=== PATIENT | female | born 1935 | race Caucasian/White ===

== ENCOUNTER → 2020-08-14 11:33 | Outpatient (BNVA) | payer MEDICARE, OTHER, SELFPAY | PROVIDERS: PCP Family Medicine; Visit Provider Family Medicine | DX: E03.9 Hypothyroidism, unspecified (principal); Z13.6 Encounter for screening for cardiovascular disorders | CPT/HCPCS: 80053; 80061; 84443; 85025 ==

== ENCOUNTER → 2021-07-02 14:41 | Outpatient (BNVA) | payer MEDICARE, OTHER, SELFPAY | PROVIDERS: PCP Family Medicine; Visit Provider Family Medicine | DX: E03.9 Hypothyroidism, unspecified (principal); Z13.6 Encounter for screening for cardiovascular disorders | CPT/HCPCS: 80053; 84439; 84443; 85025 ==

== ENCOUNTER 2021-09-22 10:25 | Outpatient (CLI) | payer MEDICARE, OTHER, SELFPAY ==
--- NOTE | 2021-09-22 10:42 | XR_ITS ---
WS: [id number] BILATERAL RIBS, MULTIPLE VIEWS WITH PA CHEST HISTORY: fall with left rib pain COMPARISON: None. Lungs and mediastinum: Slight elevation of the RIGHT hemidiaphragm. No pneumothorax or pulmonary cont usion. No pleural effusion. Mitral annular calcification is likely. Moderate atherosclerosis and ecta dick thoracic aorta. Ribs: No rib fractures or bone destruction identified. XR/XR ribs BI mn 4V w CXR1V [id number] IMPRESSION: 1. No identifiable rib fractures are identified. The lower ribs are poorly vis ualized. 2. No pulmonary contusion or pneumothorax. 3. Moderate atherosclerosis and ectasia thoracic aorta.
--- NOTE | 2021-09-22 11:21 | CT_ITS ---
WS: [id number] CT HEAD NONCONTRAST HISTORY: Fall 09/21/2020 with Right forehead bruise TECHNIQUE: Contiguous axial imaging performed through the brain in 2.5 mm imaging. Bone and soft tiss ue windows. All CT scans at [facility] use at least one of these dose optimization techniques: automated exposure control; mA and/or kV adjustment per patient size (includes targeted exams where dose is matched to clinical indication); or iterative reconstruction. DLP: 1262.22 mGycm COMPARISON: None available. No acute intracranial hemorrhage, midline shift or mass effect. Mild atrophy is symmetric bilaterally. Moderate chronic microvascular ischemic type changes. No acute infarcts are identified. Ventricles: Mild ventriculomegaly on the basis of atrophy. No inferior displacement of the cerebellar tonsils. Paranasal sinuses: As visualized are clear. Mastoid air cells: Well pneumatized. Calvarium and scalp: No skull fracture. There is a very minimal soft tissue contusion over the RIGHT frontal bone. CT/CT head wo con* [id number] IMPRESSION: 1. No acute intracranial hemorrhage or edema. 2. Mild atrophy and moderate chronic microvascular ischemic changes. 3. Small RIGHT frontal scalp contusion.
== END 2021-09-22 10:26 | disposition home or self-care (01) ==
PROVIDERS: PCP Family Medicine; Visit Provider Family Medicine Adult Medicine
DX: R07.81 Pleurodynia (principal); W19.XXXA Unspecified fall, initial encounter; S00.03XA Contusion of scalp, initial encounter; G31.9 Degenerative disease of nervous system, unspecified; I70.0 Atherosclerosis of aorta; I77.810 Thoracic aortic ectasia
CPT/HCPCS: 70450; 71111

== ENCOUNTER → 2022-01-05 11:55 | Outpatient (BNVA) | payer MEDICARE, OTHER, SELFPAY | PROVIDERS: PCP Family Medicine; Visit Provider Family Medicine | DX: E03.9 Hypothyroidism, unspecified (principal); R41.3 Other amnesia | CPT/HCPCS: 82607; 84443 ==

== ENCOUNTER → 2022-03-10 10:26 | Outpatient (BNVA) | payer MEDICARE, OTHER, SELFPAY | PROVIDERS: PCP Family Medicine; Visit Provider Podiatrist Foot & Ankle Surgery | DX: L84 Corns and callosities (principal); L60.3 Nail dystrophy; I73.9 Peripheral vascular disease, unspecified | CPT/HCPCS: 11056; 11721 ==

== ENCOUNTER → 2022-05-19 12:58 | Outpatient (BNVA) | payer MEDICARE, OTHER, SELFPAY | PROVIDERS: PCP Family Medicine; Visit Provider Podiatrist Foot & Ankle Surgery | DX: I73.9 Peripheral vascular disease, unspecified (principal); L84 Corns and callosities; L60.3 Nail dystrophy | CPT/HCPCS: 11056; 11721 ==

== ENCOUNTER → 2022-08-17 12:58 | Outpatient (BNVA) | payer MEDICARE, OTHER, SELFPAY | PROVIDERS: PCP Family Medicine; Visit Provider Podiatrist Foot & Ankle Surgery | DX: I73.9 Peripheral vascular disease, unspecified (principal); L60.8 Other nail disorders; L84 Corns and callosities; L60.3 Nail dystrophy | CPT/HCPCS: 11056; 11721 ==

== ENCOUNTER 2022-09-18 12:29 | Emergency (ER) | payer MEDICARE, OTHER, SELFPAY ==
--- NOTE | 2022-09-18 12:41 | XRR_ITS ---
PROCEDURE INFORMATION: Exam: XR Lumbosacral Spine Exam date and time: 09/18/2022 12:48 PM Age: 87 years old Clinical indication: Injury or trauma; Fall; Blunt trauma (contusions or hematomas) TECHNIQUE: Imaging protocol: Radiologic exam of the lumbosacral spine. Views: 2 or 3 views. COMPARISON: No relevant prior studies available. FINDINGS: Bones/joints: Osteopenia. 90% compression fracture of L1 with vertebroplasty glue. There is an inferior endplate compression deformity approximately 40% of T11 of unknown age. 2 mm listhesis L4 anterior to L5. Severe facet joint hypertrophic changes L4/5 and L5/S1. Soft tissues: Unremarkable. Organs: Cholecystectomy clips. Vasculature: Vascular calcifications. Moderate aortic calcifications. XR/XR lumbar spine 2-3V* [id number] IMPRESSION: 1. Osteopenia, minimal listhesis and arthritis. 2. Compression fracture L1 with vertebroplasty glue. Compression fracture inferior endplate of T11 without vertebroplasty glue of unknown age.
--- NOTE | 2022-09-18 12:41 | ED_ITS ---
HPI - Fall General: Chief Complaint: Fall Stated Complaint: LOW BACK PAIN S/P FALL Time Seen by Provider: 09/18/22 12:35 Source: patient Mode of arrival: EMS History of Present Illness: 87-year-old female presents to the emergency room with complaints of a fall. She was up this morning in her assisted living apartment and turned stumbled and fell backwards. She complaining of pain in her back and in her left hip and knee she was able with assistance to get up and stand and support her weight with the use of canes which she normally uses for ambulation. She able to go to the restroom. On arrival here she complains of pain all over its little difficulty get her to specify the only able to focus at its more of her low back her left hip and knee. She did not strike her head not lose consciousness she did have a moderately prolonged downtime a couple of hours where she could not get to alert cord to pull in the apartment but did bang on her wall with a cane eventually someone heard her and came and offered assistance. MD complaint: fall Onset (ago): hour(s) Fall from: standing Fall witnessed: no Place fall occurred: senior care[facility] Loss of consciousness: None Prolonged down time: yes and hour(s) Context: tripped/slipped Location of injury: back Location of injury - extremities: Left: thigh (Hip) and knee Severity: moderate Associated symptoms-after fall: Reports difficulty walking; Denies abdominal pain, chest pain, confusion, headache(s), hematuria, lightheadedness, neck pain, numbness, short of breath, vertigo or weakness Review of Systems Const: Denies: fever(s), chills, body aches, change in appetite, fatigue or malaise ENMT: Denies: throat pain, ear or mastoid pain, nasal discharge or nasal congestion Card: Denies: chest pain, palpitations, irregular heart rhythm, edema or lightheadedness Resp: Denies: dyspnea, productive cough or non-productive cough GI: Denies: abdominal pain, nausea or vomiting : Denies: difficulty voiding, dysuria, urinary frequency, urinary urgency or hematuria Musc: Denies: neck pain Skin/Breast: Denies: rash or pruritus Neuro: Reports: difficulty walking; Denies: headache(s), vertigo or confusion PFS ED PFSH: Medical History Fall against object Head contusion Hypothyroid Osteoporosis Thyroid disease Surgical History H/O cataract extraction H/O total knee replacement right H/O: hysterectomy History of appendectomy History of cholecystectomy History of tonsillectomy Hx of total knee arthroplasty Family History Other Alzheimer disease Dementia Social History Smoking and tobacco status: former smoker Alcohol intake: current Alcohol intake frequency: holidays/special occasions only Alcohol type: beer and wine Lives independently: Yes Household members: none Physical Exam Const: GENERAL APPEARANCE: cooperative and comfortable ORIENTATION/CONSCIOUSNESS: Yes awake, Yes oriented to person, Yes oriented to place and Yes oriented to time HENMT: COMMON NORMALS: normocephalic, atraumatic and hearing grossly normal bilaterally HEAD & SCALP: normocephalic and atraumatic Lymph: LYMPHATIC: no lymphadenopathy noted and no lymphedema noted Resp: COMMON NORMALS: normal respiratory effort, No retractions, No use of accessory muscles and clear to auscultation bilaterally AUSCULTATION: clear to auscultation bilaterally Cardio: COMMON NORMALS: regular rate, regular rhythm and No murmurs present (Cardio) RATE: regular rate RHYTHM: regular rhythm GI: COMMON NORMALS: Soft to palpation and No hepatosplenomegaly present AUSCULTATION: Yes normoactive bowel sounds PALPATION: Yes Soft to palpation, No Tenderness to palpation present (GI), No Guarding due to palpation present (GI) and Yes No hepatosplenomegaly present Extremity: COMMON NORMALS: normal to inspection, capillary refill normal, no clubbing, cyanosis or edema, no calf tenderness and no pedal edema Neuro: SENSORIUM/ORIENTATION: Yes oriented to person, Yes oriented to place and Yes oriented to time Skin: COMMON NORMALS: no rashes or lesions noted GENERAL SKIN EXAM: no rashes or lesions noted Course Vital Signs: Vital signs: Vital Signs Pulse Rate 58 L 09/18/22 14:47 Respiratory Rate 16 09/18/22 14:47 Blood Pressure 173/86 09/18/22 14:47 Pulse Oximetry 94 01/07/23 14:47 Oxygen Delivery Me thod 09/18/22 14:47 MDM - Fall Medical Decision Making No acute fracture of the hip or knee on the left lumbar spine there is multiple compression fractures with a previous kyphoplasty nothing that appears new when she is not having any pain at a specific level at this time actually improved while she was here discharge her home return if she has further problems. Medical Records I reviewed the patient's medical records. Lab Data I reviewed the patient's lab results. 09/18/22 13:19 09/18/22 13:19 Radiology Impressions Lumbar Spine X-Ray 09/18/22 12:41 IMPRESSION: 1. Osteopenia, minimal listhesis and arthritis. 2. Compression fracture L1 with vertebroplasty glue. Compression fracture inferior endplate of T11 without vertebroplasty glue of unknown age. Hip/Pelvis X-Ray 09/18/22 12:59 IMPRESSION: Arthritis without fracture. Knee X-Ray 09/18/22 12:59 IMPRESSION: Arthritis and effusion. Laboratory Results WBC 5.7 10^3/uL (4.0-10.0) 09/18/22 13:19 RBC 3.99 10^6/uL (4.1-5.3) L 09/18/22 13:19 Hgb 11.7 g/dL (11.5-15.3) 09/18/22 13:19 Hct 37.4 % (37.0-47.0) 09/18/22 13:19 MCV 93.7 fl (81-99) 09/18/22 13:19 MCH 29.3 pg (28.0-34.0) 09/18/22 13:19 MCHC 31.3 g/dL (30.0-36.0) 09/18/22 13:19 RDW 13.2 % (12.1-15.1) 09/18/22 13:19 Plt Count 338 10^3/cmm (130-400) 09/18/22 13:19 MPV 9.5 fL (7.4-10.4) 09/18/22 13:19 Neut % (Auto) 63.5 % 09/18/22 13:19 Lymph % (Auto) 26.7 % 09/18/22 13:19 [place] % (Auto) 8.4 % 09/18/22 13:19 Eos % (Auto) 0.2 % 09/18/22 13:19 Baso % (Auto) 0.3 % 09/18/22 13:19 Neut # (Auto) 3.65 10^3/uL (1.8-7.7) 09/18/22 13:19 Lymph # (Auto) 1.5 10^3/uL (0.8-4.8) 09/18/22 13:19 [place] # (Auto) 0.5 10^3/uL (0.2-0.9) 09/18/22 13:19 Eos # (Auto) 0.0 10^3/uL (0.0-0.8) 09/18/22 13:19 Baso # (Auto) 0.0 10^3/uL (0.0-0.1) 09/18/22 13:19 Nucleated RBC % (auto) 0 % 09/18/22 13:19 Nucleated RBCs # 0.0 /100WBC 09/18/22 13:19 Sodium 137 mmol/L (136-145) 09/18/22 13:19 Potassium 4.5 mmol/L (3.5-5.1) 09/18/22 13:19 Chloride 100 mmol/L (98-107) 09/18/22 13:19 Carbon Dioxide 30 mmol/L (22-29) H 09/18/22 13:19 Anion Gap 11.5 (5-19) 09/18/22 13:19 BUN 13 mg/dL (8-23) 09/18/22 13:19 Creatinine 0.9 mg/dL (0.5-0.9) 09/18/22 13:19 GFR Calculation Not Reportable 09/18/22 13:19 Glucose 95 mg/dL (65-115) 09/18/22 13:19 Calculated Osmolality 284 mOsm/kg (285-295) L 09/18/22 13:19 Calcium 10.3 mg/dL (8.5-10.5) 09/18/22 13:19 Total Bilirubin 0.3 mg/dL (0.15-1.2) 09/18/22 13:19 AST 18 U/L (0-32) 09/18/22 13:19 ALT 9 U/L (0-33) 09/18/22 13:19 Alkaline Phosphatase 82 U/L (35-105) 09/18/22 13:19 Total Protein 8.1 g/dL (6.6-8.7) 09/18/22 13:19 Albumin 3.5 g/dL (3.5-5.2) 09/18/22 13:19 Globulin 4.6 g/dL (1.3-4.6) 09/18/22 13:19 Discharge Plan Discharge Patient Disposition: Home Clinical Impression: Fall Condition: Stable Prescriptions: New diclofenac sodium 50 mg tablet,delayed release (DR/EC) 50 mg PO Q12H PRN (Reason: pain) Qty: 20 0RF No Action cholecalciferol (vitamin D3) 125 mcg (5,000 unit) capsule 125 mcg PO DAILY Prevagen 1 cap PO DAILY mecobalamin (vitamin B12) PO clotrimazole 1 % cream 1 applic topical BID PRN (Reason: itching) Qty: 45 1RF cetirizine [Zyrtec] 10 mg tablet 10 mg PO DAILY Qty: 90 1RF fluticasone propionate [Flonase Allergy Relief] 50 mcg/actuation spray,suspension 2 spray intranasal DAILY Qty: 16 5RF Rx Instructions: administer into each nostril alendronate [Fosamax] 70 mg tablet 70 mg PO .once weekly Qty: 12 0RF levothyroxine 50 mcg tablet 50 mcg PO DAILY 90 Days Qty: 90 1RF Discharge Orders: Discharge ED (Routine); Ordered 09/18/22 Ordered By: Wilmer Arce Referrals: Alissa Posey DO [Primary Care Provider] - Discharge Diet: Usual diet Discharge Activity: Increase activity as tolerated Patient Instructions: Opioid Safety, Pain Management Activity Restrictions/Additional Instructions: You are seen today after a mechanical fall. X-rays did not show any new acute fractures. For any worsening or change symptoms follow-up with your primary care doctor. You can use the diclofenac 50 mg 1 every 12 hours as needed. Coding Level of Care Code ED Garment Presser for Jaziel Ye
[2022-09-18 12:42] VITALS: BP 162/64; PULSE 63; RESP 17; O2SAT 98
--- NOTE | 2022-09-18 12:59 | XRR_ITS ---
PROCEDURE INFORMATION: Exam: XR Left Hip Exam date and time: 09/18/2022 1:01 PM Age: 87 years old Clinical indication: Injury or trauma; Fall; Blunt trauma (contusions or hematomas); Left; Hip TECHNIQUE: Imaging protocol: Radiologic exam of the Left hip. Views: 2 or 3 views hip with pelvis when performed. COMPARISON: CR XR lumbar spine 2-3V* [id number] 09/18/2022 12:48 PM FINDINGS: Bones/joints: No acute fracture, dislocation or subluxation. Mild arthritic changes involving the hip joint. Soft tissues: Unremarkable. Vasculature: Moderate vascular calcifications. Other findings: Peripheral calcification overlying the femoral neck questionably injection granulomata. XR/XR hip LT 2-3V wo/w pel* [id number] IMPRESSION: Arthritis without fracture.
--- NOTE | 2022-09-18 12:59 | XRR_ITS ---
PROCEDURE INFORMATION: Exam: XR Left Knee Exam date and time: 09/18/2022 1:01 PM Age: 87 years old Clinical indication: Injury or trauma; Fall; Blunt trauma; Knee; Left TECHNIQUE: Imaging protocol: Radiologic exam of the Left knee. Views: 3 views. COMPARISON: No relevant prior studies available. FINDINGS: Bones/joints: Severe arthritic changes involving the patellofemoral joint. Moderate effusion. No fracture, dislocation or subluxation. Soft tissues: Normal. Vasculature: Extensive vascular calcifications. XR/XR knee LT 3V* [id number] IMPRESSION: Arthritis and effusion.
[2022-09-18 13:25] LABS: Basophils % 0.3 %; Eosinophils % 0.2 %; Hematocrit 37.4 % (37.0-47.0); Hemoglobin 11.7 g/dL (11.5-15.3); Lymphocytes # 1.5 10^3/uL (0.8-4.8); Lymphocytes % 26.7 %; Mean Corpuscular HGB Conc 31.3 g/dL (30.0-36.0); Mean Corpuscular Hemoglobin 29.3 pg (28.0-34.0); Mean Corpuscular Volume 93.7 fl (81-99); Mean Platelet Volume 9.5 fL (7.4-10.4); Monocytes # 0.5 10^3/uL (0.2-0.9); Monocytes % 8.4 %; Neutrophils # 3.65 10^3/uL (1.8-7.7); Neutrophils % 63.5 %; Nucleated Red Blood Cells % 0 %; Platelet Count 338 10^3/cmm (130-400); Red Blood Count 3.99 10^6/uL (4.1-5.3); Red Cell Distribution Width 13.2 % (12.1-15.1); White Blood Count 5.7 10^3/uL (4.0-10.0)
[2022-09-18 13:49] LABS: Alanine Aminotransferase 9 U/L (0-33); Albumin Level 3.5 g/dL (3.5-5.2); Alkaline Phosphatase 82 U/L (35-105); Anion Gap 11.5 (5-19); Aspartate Amino Transferase 18 U/L (0-32); Blood Urea Nitrogen 13 mg/dL (8-23); Calcium 10.3 mg/dL (8.5-10.5); Carbon Dioxide 30 mmol/L (22-29); Chloride 100 mmol/L (98-107); Globulin 4.6 g/dL (1.3-4.6); Glucose 95 mg/dL (65-115); Osmolality Calculated 284 mOsm/kg (285-295); Potassium 4.5 mmol/L (3.5-5.1); Sodium 137 mmol/L (136-145); Total Bilirubin 0.3 mg/dL (0.15-1.2); Total Protein 8.1 g/dL (6.6-8.7)
[2022-09-18 14:47] VITALS: BP 173/86; PULSE 58; RESP 16; O2SAT 94
== END 2022-09-18 15:35 | disposition home or self-care (01) ==
PROVIDERS: Emergency Provider Family Medicine; PCP Family Medicine
DX: M54.50 Low back pain, unspecified (principal); W01.0XXA Fall on same level from slipping, tripping and stumbling without subsequent striking against object, initial encounter; Y92.099 Unspecified place in other non-institutional residence as the place of occurrence of the external cause; Z87.891 Personal history of nicotine dependence
CPT/HCPCS: 36415; 72100; 73502; 73562; 80053; 85025; 99283

== ENCOUNTER → 2022-10-19 10:27 | Outpatient (BNVA) | payer MEDICARE, OTHER, SELFPAY | PROVIDERS: PCP Family Medicine; Visit Provider Podiatrist Foot & Ankle Surgery | DX: I73.9 Peripheral vascular disease, unspecified (principal); L60.8 Other nail disorders; L84 Corns and callosities; L60.3 Nail dystrophy | CPT/HCPCS: 11056; 11721 ==

== ENCOUNTER → 2023-01-13 14:57 | Outpatient (BNVA) | payer MEDICARE, OTHER, SELFPAY | PROVIDERS: PCP Family Medicine; Visit Provider Podiatrist Foot & Ankle Surgery | DX: I73.9 Peripheral vascular disease, unspecified (principal); L60.8 Other nail disorders; L60.3 Nail dystrophy | CPT/HCPCS: 11721 ==

== ENCOUNTER → 2023-04-04 13:11 | Outpatient (BNVA) | payer MEDICARE, OTHER, SELFPAY | PROVIDERS: PCP Family Medicine; Visit Provider Podiatrist Foot & Ankle Surgery | DX: L60.8 Other nail disorders (principal); L60.3 Nail dystrophy; I73.9 Peripheral vascular disease, unspecified | CPT/HCPCS: 11721 ==

== ENCOUNTER 2023-04-18 11:25 | Emergency (ER) | payer MEDICARE, OTHER, SELFPAY ==
[2023-04-18] VITALS (9 sets, daily range): BP systolic 146–212; BP diastolic 79–104; PULSE 60–78; RESP 19; TEMP 36.9; O2SAT 92–100; BMI 24.2
--- NOTE | 2023-04-18 11:45 | XR_ITS ---
WS: [id number] XR chest 1V [id number] REASON FOR EXAM: malaise FINDINGS: Chest is unchanged compared to 10/01/2021. Moderate tortuosity and ectasia of the thoracic aorta. Right-sided widening of the mediastinum is sec ondary to tortuous innominate artery. Heart at the upper limits of normal in size. Calcified granulomatous disease in both hemithoraces. No acute or subacute pulmonary parenchymal or pleural abnormality. 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 Previous vertebroplasty at L1. XR/XR chest 1V [id number] IMPRESSION: Stable chest with no acute abnormality.
[2023-04-18 12:08] LABS: Basophils % 0.4 %; Eosinophils % 0.4 %; Hematocrit 35.3 % (37.0-47.0); Hemoglobin 10.9 g/dL (11.5-15.3); Lymphocytes # 1.1 10^3/uL (0.8-4.8); Lymphocytes % 14.8 %; Mean Corpuscular HGB Conc 30.9 g/dL (30.0-36.0); Mean Corpuscular Volume 93.9 fl (81-99); Mean Platelet Volume 9.3 fL (7.4-10.4); Monocytes # 0.6 10^3/uL (0.2-0.9); Monocytes % 7.7 %; Neutrophils # 5.74 10^3/uL (1.8-7.7); Neutrophils % 75.1 %; Nucleated Red Blood Cells % 0 %; Platelet Count 487 10^3/cmm (130-400); Red Blood Count 3.76 10^6/uL (4.1-5.3); Red Cell Distribution Width 15.1 % (12.1-15.1); White Blood Count 7.6 10^3/uL (4.0-10.0)
--- NOTE | 2023-04-18 12:16 | W.ED.WEAKNES ---
HPI - Weakness General: Chief complaint: Weakness Stated complaint: weakness and pain all over Time Seen by Provider: 04/18/23 11:40 History of Present Illness: 87-year-old female living in assisted living locally. She presents to the emergency department with EMS. The chief complaint is failure to thrive. Patient has been progressively weak and is getting to the point where she has a hard time doing activities of daily living at her assisted living. She has to have help getting up to go to the bathroom, bathing, etc. She does not report any abrupt change. No medication changes. No GI bleeding. No cough or shortness of breath. She denies any chest pain or palpitations. There is been nothing new she just feels like her body is giving out on her. Associated symptoms: Denies chest pain, chills, confusion, dysuria, fever(s), headache(s), nausea, syncope or vomiting Review of Systems General: Reports: 10 or more systems reviewed and unremarkable except in HPI and below Const: Denies: fever(s), chills or body aches Eyes: Denies: change in vision ENMT: Denies: throat pain Card: Denies: chest pain, edema or syncope Resp: Denies: dyspnea or productive cough GI: Denies: abdominal pain, nausea, vomiting or diarrhea : Denies: flank pain, dysuria or urinary frequency Musc: Denies: neck pain, back pain, extremity pain or extremity swelling Skin/Breast: Denies: rash or erythema Neuro: Reports: weakness in extremities and difficulty walking; Denies: headache(s), numbness in extremities, sensory changes, lack of coordination, confusion, Slurred speech present, difficulty communicating thoughts, seizure-like activity or involuntary movements Psych: Reports: depression (Situational, feels body is giving out on her) PFS ED PFSH: Medical History Fall against object Head contusion Hypothyroid Osteoporosis Thyroid disease Surgical History H/O cataract extraction H/O total knee replacement right H/O: hysterectomy History of appendectomy History of cholecystectomy History of tonsillectomy Hx of total knee arthroplasty Family History Other Alzheimer disease Dementia Social History Smoking and tobacco status: former smoker Alcohol intake: current Alcohol intake frequency: holidays/special occasions only Alcohol type: beer and wine Substance/Drug Use: never Lives independently: Yes Household members: none Physical Exam Const: COMMON NORMALS: no limitations, alert and well nourished EXAM LIMITATIONS: no altered mental status HENMT: COMMON NORMALS: normocephalic, atraumatic and external ears normal HEAD & SCALP: normocephalic and atraumatic EXTERNAL EAR: Yes external ears normal MOUTH: no muffled voice Eye: COMMON NORMALS: conjunctivae normal and no scleral icterus CONJUNCTIVA: Yes conjunctivae normal Neck/C-Spine: GENERAL: Yes normal visual inspection and Yes trachea midline Resp: COMMON NORMALS: normal respiratory effort, No use of accessory muscles and clear to auscultation bilaterally AUSCULTATION: clear to auscultation bilaterally Cardio: COMMON NORMALS: regular rate and regular rhythm RATE: regular rate RHYTHM: regular rhythm GI: COMMON NORMALS: Soft to palpation and non-tender PALPATION: Yes Soft to palpation and No Guarding due to palpation present (GI) Extremity: COMMON NORMALS: normal to inspection Neuro: COMMON NORMALS: moves all extremities, no focal motor deficits and no sensory deficits noted SENSORIUM/ORIENTATION: Yes alert SPEECH: speech normal OTHER: Patient has muscle deconditioning. She is a week and a half to help her set up. She is oriented to person place situation. She had a hard time remembering the year but knew the month and day. She does not have any focal neurologic deficits. Psych: COMMON NORMALS: mental status grossly normal, Normal thought process present, cooperative and speech normal SPEECH: Yes normal speech THOUGHT PROCESS: Normal thought process present OTHER: Patient seems to have some good insight. She has some situational depression related to the fact that her body is giving out on her. Skin: COMMON NORMALS: no rashes or lesions noted and no jaundice GENERAL SKIN EXAM: no rashes or lesions noted Course Vital Signs: Vital signs: Vital Signs Temperature 98.5 F 04/18/23 11:27 Pulse Rate 78 04/18/23 13:00 Respiratory Rate 19 H 04/18/23 13:00 Blood Pressure 207/97 04/18/23 13:00 Pulse Oximetry 97 04/18/23 13:00 Oxygen Delivery Me thod Room Air 04/18/23 13:00 Oxygen Flow Rate 2 04/18/23 12:30 MDM - Weakness Medical Decision Making Differential diagnosis includes deconditioning, aging, dehydration, anemia, electrolyte problem, blood sugar problem, medication interaction, arrhythmia, urinary tract infection, thyroid issue, combination of multiple issues mentioned above, depression, other. I did review the patient's prehospital EKG that was obtained at 10:54 AM. There is a sinus rhythm, LVH, nonspecific T wave changes, less than half a millimeter of ST depression in V3 through V6, no concerning ST segment elevations She is noted to have high blood pressure but is asymptomatic. Update The patient has mild normocytic anemia at 10.9. She has hypokalemia at 2.8. She has a minimally elevated creatinine. Her urine analysis is suggestive of possible urinary tract infection, BUN to creatinine ratio is slightly above 20. Plan to give patient oral potassium, 1 g of Rocephin, 1 L of IV fluids. I got case management involved and they are in communications with the patient's longterm facility to see if patient could be moved from assisted living to full-time longterm. BP is elevated--pt asymptomatic. WIll give dose of clonidine here. Patient no longer on oxygen, 94% on RA on repeat eval. CXR: Moderate tortuosity and ectasia of the thoracic aorta. 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 Heart at the upper limits of normal in size. Calcified granulomatous disease in both hemithoraces. No acute or subacute pulmonary parenchymal or pleural abnormality. 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 Previous vertebroplasty at L1. Lab Data 04/18/23 11:57 04/18/23 11:57 Radiology Impressions Chest X-Ray 04/18/23 11:45 IMPRESSION: Stable chest with no acute abnormality. Laboratory Results WBC 7.6 10^3/uL (4.0-10.0) 04/18/23 11:57 RBC 3.76 10^6/uL (4.1-5.3) L 04/18/23 11:57 Hgb 10.9 g/dL (11.5-15.3) L 04/18/23 11:57 Hct 35.3 % (37.0-47.0) L 04/18/23 11:57 MCV 93.9 fl (81-99) 04/18/23 11:57 MCH 29.0 pg (28.0-34.0) 04/18/23 11:57 MCHC 30.9 g/dL (30.0-36.0) 04/18/23 11:57 RDW 15.1 % (12.1-15.1) 04/18/23 11:57 Plt Count 487 10^3/cmm (130-400) H 04/18/23 11:57 MPV 9.3 fL (7.4-10.4) 04/18/23 11:57 Neut % (Auto) 75.1 % 04/18/23 11:57 Lymph % (Auto) 14.8 % 04/18/23 11:57 Faulk % (Auto) 7.7 % 04/18/23 11:57 Eos % (Auto) 0.4 % 04/18/23 11:57 Baso % (Auto) 0.4 % 04/18/23 11:57 Neut # (Auto) 5.74 10^3/uL (1.8-7.7) 04/18/23 11:57 Lymph # (Auto) 1.1 10^3/uL (0.8-4.8) 04/18/23 11:57 Faulk # (Auto) 0.6 10^3/uL (0.2-0.9) 04/18/23 11:57 Eos # (Auto) 0.0 10^3/uL (0.0-0.8) 04/18/23 11:57 Baso # (Auto) 0.0 10^3/uL (0.0-0.1) 04/18/23 11:57 Nucleated RBC % (auto) 0 % 04/18/23 11:57 Nucleated RBCs # 0.0 /100WBC 04/18/23 11:57 Sodium 143 mmol/L (136-145) 04/18/23 11:57 Potassium 2.8 mmol/L (3.5-5.1) L* 04/18/23 11:57 Chloride 104 mmol/L (98-107) 04/18/23 11:57 Carbon Dioxide 26 mmol/L (22-29) 04/18/23 11:57 Anion Gap 15.8 (5-19) 04/18/23 11:57 BUN 21 mg/dL (8-23) 04/18/23 11:57 Creatinine 1.0 mg/dL (0.5-0.9) H 04/18/23 11:57 GFR Calculation Not Reportable 04/18/23 11:57 Glucose 94 mg/dL (65-115) 04/18/23 11:57 Calculated Osmolality 299 mOsm/kg (285-295) H 04/18/23 11:57 Calcium 8.1 mg/dL (8.5-10.5) L 04/18/23 11:57 Magnesium 1.8 mg/dL (1.7-2.3) 04/18/23 11:57 Total Bilirubin 0.4 mg/dL (0.15-1.2) 04/18/23 11:57 AST 20 U/L (0-32) 04/18/23 11:57 ALT 7 U/L (0-33) 04/18/23 11:57 Alkaline Phosphatase 91 U/L (35-105) 04/18/23 11:57 Total Protein 7.1 g/dL (6.6-8.7) 04/18/23 11:57 Albumin 2.9 g/dL (3.5-5.2) L 04/18/23 11:57 Globulin 4.2 g/dL (1.3-4.6) 04/18/23 11:57 Urine Color Yellow (Yellow) 04/18/23 12:13 Urine Appearance Hazy (CLEAR) A 04/18/23 12:13 Urine pH 6.5 (5-7) 04/18/23 12:13 Ur Specific Beason 1.015 (1.005-1.030) 04/18/23 12:13 Urine Protein Trace (Negative) 04/18/23 12:13 Urine Glucose (UA) Norm (Normal) 04/18/23 12:13 Urine Ketones 1+ (Negative) H 04/18/23 12:13 Urine Blood Neg (Negative) 04/18/23 12:13 Urine Nitrate Negative (Negative) 04/18/23 12:13 Urine Bilirubin Neg (Negative) 04/18/23 12:13 Urine Urobilinogen Norm mg/dL (Negative) 04/18/23 12:13 Ur Leukocyte Esterase 1+ (Negative) H 04/18/23 12:13 Urine RBC None /hpf (0-2) 04/18/23 12:13 Urine WBC 25-40 /hpf (0-5) H 04/18/23 12:13 Ur Squamous Epith Cells 15-25 /hpf (0-5) H 04/18/23 12:13 Amorphous Sediment Not Reportable 04/18/23 12:13 Urine Bacteria 1+ /hpf (NONE) H 04/18/23 12:13 Discharge Plan Discharge Patient Disposition: Home Clinical Impression: Dehydration, Acute UTI, Acute hypokalemia, Physical deconditioning, Biological aging, Impaired mobility and ADLs, Situational depression Condition: Stable Prescriptions: New cephalexin 500 mg capsule 500 mg PO Q8H 7 Days Qty: 21 0RF potassium chloride 20 mEq tablet,ER particles/crystals 20 meq PO BID 5 Days Qty: 10 0RF No Action cholecalciferol (vitamin D3) 125 mcg (5,000 unit) capsule 125 mcg PO DAILY mecobalamin (vitamin B12) See Rx Instructions .ROUTE .COMPLEX Rx Instructions: 1,000 MG BY MOUTH EVERY 48 HOURS FOR VITAMIN DEFICENCY. cetirizine [Zyrtec] 10 mg tablet 10 mg PO DAILY Qty: 90 1RF levothyroxine 50 mcg tablet 50 mcg PO DAILY 90 Days Qty: 90 1RF paroxetine HCl 10 mg Tablet 10 mg PO DAILY Rx Instructions: IN MORNING acetaminophen 500 mg Tablet See Rx Instructions .ROUTE .COMPLEX PRN (Reason: Pain) Rx Instructions: 500 TO 1000 MG ORALLY EVERY 6 HOURS NEEDED FOR PAIN OR FEVER. Calcium 600 600 mg calcium (1,500 mg) Tablet 600 mg PO DAILY oxybutynin chloride 5 mg Tablet Extended Release 24hr 5 mg PO BEDTIME dicyclomine 10 mg Capsule 10 mg PO QID Voltaren 1 % Gel 2 g TOPICAL QID Rx Instructions: FOR KNEE PAIN guaifenesin 600 mg Tablet Extended Release 12hr 600 mg PO Q12H PRN (Reason: Cold Symptoms) Flonase Allergy Relief 50 mcg/actuation spray,suspension 2 spray intranasal BEDTIME Rx Instructions: administer into each nostril clotrimazole 1 % cream 1 applic topical Q8H PRN (Reason: itching) Discharge Orders: Discharge ED (Routine); Ordered 04/18/23 Ordered By: Smith Lira Referrals: Alissa Posey DO [Primary Care Provider] - 1 week (Patient with dehydration, low K, failure to thrive, situational depresison. Moved to SNF) Discharge Diet: Usual diet Discharge Activity: Increase activity as tolerated Patient Instructions: Dehydration - Adult, Hypokalemia (ED), Failure to Thrive in Older Adults (ED), Opioid Safety, Pain Management Coding Level of Care Code ED [employer] Machine for Jaziel Ye
[2023-04-18 12:53] LABS: Add Urine Microscopic? YES; Bilirubin Urine Neg (Negative); Blood Urine Neg (Negative); Glucose Urine UA Norm (Normal); Ketones Urine 1+ (Negative); Leukocyte Esterase Urine 1+ (Negative); Nitrate Urine Negative (Negative); Protein Urine Trace (Negative); Specific Gravity, Urine 1.015 (1.005-1.030); Urine Appearance Hazy (CLEAR); Urine Color Yellow (Yellow); Urobilinogen Urine Norm (Negative); pH Urine 6.5 (5-7)
[2023-04-18 12:54] LABS: Add Urine Culture? No; Bacteria Urine 1+ /hpf; Squamous Epithelial Cell Urine 15-25 /hpf (0-5); WBC Urine 25-40 /hpf (0-5)
[2023-04-18 12:57] LABS: Alanine Aminotransferase 7 U/L (0-33); Albumin Level 2.9 g/dL (3.5-5.2); Alkaline Phosphatase 91 U/L (35-105); Anion Gap 15.8 (5-19); Aspartate Amino Transferase 20 U/L (0-32); Blood Urea Nitrogen 21 mg/dL (8-23); Calcium 8.1 mg/dL (8.5-10.5); Carbon Dioxide 26 mmol/L (22-29); Chloride 104 mmol/L (98-107); Globulin 4.2 g/dL (1.3-4.6); Glucose 94 mg/dL (65-115); Magnesium 1.8 mg/dL (1.7-2.3); Osmolality Calculated 299 mOsm/kg (285-295); Sodium 143 mmol/L (136-145); Total Bilirubin 0.4 mg/dL (0.15-1.2); Total Protein 7.1 g/dL (6.6-8.7)
[2023-04-18 13:04] LABS: Potassium 2.8 mmol/L (3.5-5.1)
[2023-04-18] MEDS: sodium chloride 0.9% 1,000 ML 999 ML IV (13:17)
[2023-04-18] MEDS: potassium bicarb 25 mEq Tablet 50 MEQ PO (13:20)
--- NOTE | 2023-04-18 13:22 | PC.NURSE ---
Patient taken off 2L NC due to oxygen saturation being 100% on the 2L. Patient does not normally wear any oxygen at home.
[2023-04-18] MEDS: cloNIDine 0.1 mg Tablet PO (13:53)
[2023-04-18] MEDS: cefTRIAXone 1,000 MG in sodium chloride 0.9% (plus) 50 ML 100 MG IV (13:55)
--- NOTE | 2023-04-18 18:27 | PC.NURSE ---
Attempted report back to [facility] but there was no answer. Charge nurse notified.
== END 2023-04-18 18:27 | disposition home or self-care (01) ==
PROVIDERS: Emergency Provider Emergency Medicine; PCP Family Medicine
DX: R62.7 Adult failure to thrive (principal); Z68.24 Body mass index [BMI] 24.0-24.9, adult; R54 Age-related physical debility; E86.0 Dehydration; N39.0 Urinary tract infection, site not specified; E87.6 Hypokalemia; F43.21 Adjustment disorder with depressed mood; R03.0 Elevated blood-pressure reading, without diagnosis of hypertension; D64.9 Anemia, unspecified
CPT/HCPCS: 36415; 51701; 71045; 80053; 81001; 83735; 85025; 96365; 99284; J0696; J7030

== ENCOUNTER → 2023-09-21 13:21 | Outpatient (BNVA) | payer MEDICARE, OTHER, MEDICAID, SELFPAY | PROVIDERS: PCP Nurse Practitioner Family; Visit Provider Podiatrist Foot & Ankle Surgery | DX: L60.3 Nail dystrophy (principal); I73.9 Peripheral vascular disease, unspecified; L60.8 Other nail disorders | CPT/HCPCS: 11721 ==